=== PATIENT | female | born 1975 | race Caucasian/White ===

== ENCOUNTER 2019-11-14 19:13 | Inpatient (IN) | payer OTHER, MEDICAID ==
[~2019-11-14] VITALS: Ht 154.9 cm; Wt 69.5 kg
[2019-11-14] MEDS ORDERED: HYD25 PO (20:37)
[2019-11-14] MEDS ORDERED: VALP250S23 PO (20:37)
[2019-11-14] MEDS ORDERED: PALI6 PO (20:37)
[2019-11-14] MEDS ORDERED: BUPR75 PO (20:37)
[2019-11-14 22:27] LABS: BASOPHILS % (AUTO) 0.7 % (0.0-2.0); EOSINOPHILS % (AUTO) 1.2 % (1.0-6.0); HEMATOCRIT 40.9 % (36-46); HEMOGLOBIN 13.8 g/dL (12.0-16.0); LYMPHOCYTES % (AUTO) 24.9 % (22.0-44.0); MEAN CORPUSCULAR HEMOGLOBIN 30.5 pg (26.0-34.0); MEAN CORPUSCULAR HGB CONC 33.6 G/dL (31.0-37.0); MEAN CORPUSCULAR VOLUME 91 fL (80-100); MONOCYTES # (AUTO) 0.7 K/uL (0.1-1.0); MONOCYTES % (AUTO) 9.2 % (2.0-9.0); NEUTROPHILS # (AUTO) 5.1 K/uL (1.8-7.7); PLATELET COUNT (AUTO) 155 K/uL (150-450); RED BLOOD CELL COUNT(AUTO) 4.51 MIL/uL (4.00-5.20); RED CELL DISTRIBUTION WIDTH 13.7 % (11.5-14.5)
[2019-11-14 22:35] LABS: ANION GAP 6 mmol/L (8-16); CALCIUM, TOTAL 9.2 mg/dL (8.8-10.5); CARBON DIOXIDE 29 mmol/L (22-29); CHLORIDE 101 mmol/L (98-107); CREATININE 0.72 mg/dL (0.60-1.30); GLOMERULAR FILTR. RATE CALC > 60 mL/min (>60); GLUCOSE,RANDOM 79 mg/dL (70-110); POTASSIUM 3.7 mmol/L (3.5-5.1); SODIUM SERUM 136 mmol/L (136-145); UREA NITROGEN, BLOOD 10 mg/dL (7-18)
[2019-11-14 22:42] LABS: ALANINE AMINOTRANSFERASE 19 U/L (12-78); ALBUMIN 3.7 g/dL (3.4-5.0); ALKALINE PHOSPHATASE 100 U/L (46-116); ASPARTATE AMINOTRANSFERASE 18 U/L (15-37); BILIRUBIN,TOTAL 0.3 mg/dL (0.1-1.0); TOTAL PROTEIN, SERUM 7.6 g/dL (6.4-8.2)
[2019-11-14] MEDS ORDERED: HALOPERIDOL 5 MG TABLET PO PRN (23:00)
[2019-11-15 02:01] VITALS: BP 126/80
[2019-11-15 08:41] LABS: CHOL/HDL RATIO 2.7 (3.9-5.7)
[2019-11-15] MEDS ORDERED: ALBUTEROL SULFATE HFA 90 MCG/PUFF 8 GM INHALER IH PRN (09:00)
[2019-11-15] MEDS ORDERED: OMEPRAZOLE 20 MG CAPSULE PO PRN (09:00)
[2019-11-15] MEDS ORDERED: PETROLATUM,WHITE 28 GM JELLY TP PRN (09:00)
[2019-11-15] MEDS ORDERED: BACITRACIN 28.4 GM OINTMENT TP PRN (09:00)
[2019-11-15] MEDS ORDERED: MAGNESIUM HYDROXIDE SUSPENSION 30 ML UDCUP PO PRN (09:00)
[2019-11-15] MEDS ORDERED: BENZOCAINE/MENTHOL LOZENGE MM PRN (09:00)
[2019-11-15] MEDS ORDERED: DOCUSATE SODIUM 100 MG CAPSULE PO PRN (09:00)
[2019-11-15] MEDS ORDERED: CloNIDine HCL 0.1 MG TABLET PO PRN (09:00)
[2019-11-15] MEDS ORDERED: MAG HYDROX/AL HYDROX/SIMETH ES 30 ML SUSPENSION UDCUP PO PRN (09:00)
[2019-11-15] MEDS ORDERED: ONDANSETRON HCL 4 MG TABLET PO PRN (09:00)
[2019-11-15] MEDS ORDERED: LOPERAMIDE HCL 2 MG CAPSULE PO PRN (09:00)
[2019-11-15 10:05] VITALS: BP 127/80
[2019-11-15] MEDS: BuPROPion HCL 75 MG TABLET PO SCH ×2 (12:41→17:24)
[2019-11-15] MEDS: VALPROIC ACID 250 MG/5 ML SYRUP UDCUP PO SCH ×2 (12:45→17:24)
[2019-11-15] MEDS: HydrOXYzine HCL 25 MG TABLET PO SCH (17:24)
[2019-11-15 17:40] VITALS: BP 110/70
[2019-11-16] MEDS: HydrOXYzine HCL 25 MG TABLET PO SCH ×2 (08:27→16:10)
[2019-11-16] MEDS: VALPROIC ACID 250 MG/5 ML SYRUP UDCUP PO SCH ×3 (08:27→16:11)
[2019-11-16] MEDS: PALIPERIDONE 6 MG ER TABLET PO SCH (08:27)
[2019-11-16 09:11] VITALS: BP 118/75
[2019-11-16] MEDS: BuPROPion HCL 150 MG SR TABLET PO SCH ×3 (09:22→16:10)
[2019-11-16 17:18] VITALS: BP 119/68
[2019-11-17 04:00] VITALS: BP 124/80
[2019-11-17] MEDS: VALPROIC ACID 250 MG/5 ML SYRUP UDCUP PO SCH ×3 (08:16→17:18)
[2019-11-17] MEDS: BuPROPion HCL 150 MG SR TABLET PO SCH ×3 (08:17→17:18)
[2019-11-17] MEDS: PALIPERIDONE 6 MG ER TABLET PO SCH (08:17)
[2019-11-17] MEDS: HydrOXYzine HCL 25 MG TABLET PO SCH ×2 (08:17→17:18)
[2019-11-17 08:55] VITALS: BP 112/85
[2019-11-17 16:32] VITALS: BP 115/75
[2019-11-18] MEDS: BuPROPion HCL 150 MG SR TABLET PO SCH ×3 (08:49→16:10)
[2019-11-18] MEDS: VALPROIC ACID 250 MG/5 ML SYRUP UDCUP PO SCH ×3 (08:49→16:12)
[2019-11-18] MEDS: HydrOXYzine HCL 25 MG TABLET PO SCH ×2 (08:49→16:12)
[2019-11-18] MEDS: PALIPERIDONE 6 MG ER TABLET PO SCH (08:49)
[2019-11-18 08:54] VITALS: BP 109/67
[2019-11-18 17:00] VITALS: BP 106/66
[2019-11-19] MEDS: HydrOXYzine HCL 25 MG TABLET PO SCH ×2 (08:24→16:06)
[2019-11-19] MEDS: VALPROIC ACID 250 MG/5 ML SYRUP UDCUP PO SCH ×3 (08:24→16:06)
[2019-11-19] MEDS: PALIPERIDONE 6 MG ER TABLET PO SCH (08:25)
[2019-11-19] MEDS: BuPROPion HCL 150 MG SR TABLET PO SCH ×3 (08:25→16:06)
[2019-11-19 09:25] VITALS: BP 111/64
[2019-11-19 21:08] VITALS: BP 116/70
[2019-11-20 02:10] VITALS: BP 127/68
[2019-11-20] MEDS: BuPROPion HCL 150 MG SR TABLET PO SCH ×3 (08:19→16:18)
[2019-11-20] MEDS: HydrOXYzine HCL 25 MG TABLET PO SCH ×2 (08:19→16:18)
[2019-11-20] MEDS: VALPROIC ACID 250 MG/5 ML SYRUP UDCUP PO SCH ×3 (08:19→16:18)
[2019-11-20] MEDS: PALIPERIDONE 6 MG ER TABLET PO SCH (08:19)
[2019-11-20 09:00] VITALS: BP 107/67
[2019-11-20 22:06] VITALS: BP 106/77
[2019-11-21] MEDS: HydrOXYzine HCL 25 MG TABLET PO SCH ×2 (09:00→17:22)
[2019-11-21] MEDS: PALIPERIDONE 6 MG ER TABLET PO SCH (09:00)
[2019-11-21] MEDS: BuPROPion HCL 150 MG SR TABLET PO SCH ×3 (09:00→17:22)
[2019-11-21] MEDS: VALPROIC ACID 250 MG/5 ML SYRUP UDCUP PO SCH ×3 (09:00→16:13)
[2019-11-21 11:57] VITALS: BP 108/65
[2019-11-21 17:09] VITALS: BP 101/50
[2019-11-22] MEDS: VALPROIC ACID 250 MG/5 ML SYRUP UDCUP PO SCH ×3 (08:48→16:00)
[2019-11-22] MEDS: HydrOXYzine HCL 25 MG TABLET PO SCH ×2 (08:48→16:00)
[2019-11-22] MEDS: BuPROPion HCL 150 MG SR TABLET PO SCH ×3 (08:49→16:00)
[2019-11-22] MEDS: PALIPERIDONE 6 MG ER TABLET PO SCH (08:49)
[2019-11-22 09:10] VITALS: BP 100/64
[2019-11-22] MEDS ORDERED: PALIPERIDONE PALMITATE 156 MG/ML SYRINGE IM SCH (16:00)
[2019-11-22 17:27] VITALS: BP 104/68
[2019-11-22] MEDS: IBUPROFEN 600 MG TABLET PO PRN (22:54)
[2019-11-23 03:45] VITALS: BP 119/76
[2019-11-23 08:30] VITALS: BP 113/74
[2019-11-23] MEDS: VALPROIC ACID 250 MG/5 ML SYRUP UDCUP PO SCH ×3 (08:31→16:51)
[2019-11-23] MEDS: HydrOXYzine HCL 25 MG TABLET PO SCH ×2 (08:31→16:50)
[2019-11-23] MEDS: BuPROPion HCL 150 MG SR TABLET PO SCH ×3 (08:31→16:51)
[2019-11-23] MEDS: PALIPERIDONE 6 MG ER TABLET PO SCH (08:31)
[2019-11-23 16:47] VITALS: BP 112/65
[2019-11-24 00:28] VITALS: BP 121/80
[2019-11-24] MEDS: ZOLPIDEM TARTRATE 10 MG TABLET PO PRN (00:32)
[2019-11-24] MEDS: ACETAMINOPHEN 325 MG TABLET PO PRN ×2 (00:33→20:10)
[2019-11-24] MEDS: HydrOXYzine HCL 25 MG TABLET PO SCH ×2 (09:41→16:19)
[2019-11-24] MEDS: VALPROIC ACID 250 MG/5 ML SYRUP UDCUP PO SCH ×3 (09:41→16:20)
[2019-11-24] MEDS: BuPROPion HCL 150 MG SR TABLET PO SCH ×3 (09:41→16:19)
[2019-11-24 10:56] VITALS: BP 108/75
[2019-11-24 16:49] VITALS: BP 123/74
[2019-11-25 03:05] VITALS: BP 114/72
[2019-11-25] MEDS: LORazepam 2 MG TABLET PO PRN (03:10)
[2019-11-25] MEDS: HydrOXYzine HCL 25 MG TABLET PO SCH ×2 (08:54→16:32)
[2019-11-25] MEDS: VALPROIC ACID 250 MG/5 ML SYRUP UDCUP PO SCH ×3 (08:54→16:32)
[2019-11-25] MEDS: BuPROPion HCL 150 MG SR TABLET PO SCH ×3 (08:54→16:32)
[2019-11-25 10:34] VITALS: BP 100/50
[2019-11-25 17:04] VITALS: BP 111/77
[2019-11-26 09:52] VITALS: BP 112/77
[2019-11-26] MEDS: HydrOXYzine HCL 25 MG TABLET PO SCH ×2 (09:54→17:03)
[2019-11-26] MEDS: VALPROIC ACID 250 MG/5 ML SYRUP UDCUP PO SCH ×3 (09:54→17:03)
[2019-11-26] MEDS: BuPROPion HCL 150 MG SR TABLET PO SCH ×3 (09:54→17:03)
[2019-11-26 19:20] VITALS: BP 128/71
[2019-11-27 08:37] VITALS: BP 101/64
[2019-11-27] MEDS: BuPROPion HCL 150 MG SR TABLET PO SCH ×3 (09:01→16:18)
[2019-11-27] MEDS: HydrOXYzine HCL 25 MG TABLET PO SCH ×2 (09:01→16:18)
[2019-11-27] MEDS: VALPROIC ACID 250 MG/5 ML SYRUP UDCUP PO SCH ×3 (09:01→16:18)
[2019-11-27 17:00] VITALS: BP 109/73
[2019-11-27 20:11] VITALS: BP 125/78
[2019-11-27] MEDS: IBUPROFEN 600 MG TABLET PO PRN (20:13)
[2019-11-28 03:09] VITALS: BP 103/74
[2019-11-28] MEDS: BuPROPion HCL 150 MG SR TABLET PO SCH ×3 (08:13→16:22)
[2019-11-28] MEDS: HydrOXYzine HCL 25 MG TABLET PO SCH ×2 (08:13→16:22)
[2019-11-28] MEDS: VALPROIC ACID 250 MG/5 ML SYRUP UDCUP PO SCH ×3 (08:14→16:22)
[2019-11-28 08:51] VITALS: BP 122/80
[2019-11-28 18:45] VITALS: BP 107/69
[2019-11-28] MEDS: ACETAMINOPHEN 325 MG TABLET PO PRN (19:23)
[2019-11-29] MEDS: ACETAMINOPHEN 325 MG TABLET PO PRN (02:05)
[2019-11-29 02:07] VITALS: BP 101/70
[2019-11-29] MEDS: LORazepam 2 MG TABLET PO PRN (04:51)
[2019-11-29] MEDS: BuPROPion HCL 150 MG SR TABLET PO SCH ×3 (08:19→16:19)
[2019-11-29] MEDS: VALPROIC ACID 250 MG/5 ML SYRUP UDCUP PO SCH ×3 (08:20→16:19)
[2019-11-29] MEDS: HydrOXYzine HCL 25 MG TABLET PO SCH ×2 (08:20→16:19)
[2019-11-29 08:50] VITALS: BP 120/84
[2019-11-29 19:34] VITALS: BP 111/74
[2019-11-29] MEDS: ZOLPIDEM TARTRATE 10 MG TABLET PO PRN (22:28)
[2019-11-30 00:50] VITALS: BP 111/74
[2019-11-30] MEDS: HydrOXYzine HCL 25 MG TABLET PO SCH ×2 (08:01→16:17)
[2019-11-30] MEDS: BuPROPion HCL 150 MG SR TABLET PO SCH ×3 (08:01→16:17)
[2019-11-30] MEDS: VALPROIC ACID 250 MG/5 ML SYRUP UDCUP PO SCH ×3 (08:01→16:17)
[2019-11-30 08:43] VITALS: BP 118/78
[2019-11-30 17:10] VITALS: BP 110/67
[2019-11-30] MEDS: IBUPROFEN 600 MG TABLET PO PRN (22:31)
[2019-11-30 22:35] VITALS: BP 111/70
[2019-12-01 06:19] VITALS: BP 102/71
[2019-12-01] MEDS: HydrOXYzine HCL 25 MG TABLET PO SCH ×2 (08:25→16:38)
[2019-12-01] MEDS: BuPROPion HCL 150 MG SR TABLET PO SCH ×3 (08:25→16:38)
[2019-12-01] MEDS: VALPROIC ACID 250 MG/5 ML SYRUP UDCUP PO SCH ×3 (08:26→16:38)
[2019-12-01 08:46] VITALS: BP 167/61
[2019-12-01 17:14] VITALS: BP 110/69
[2019-12-02 03:16] VITALS: BP 95/62
[2019-12-02] MEDS: HydrOXYzine HCL 25 MG TABLET PO SCH ×2 (09:02→16:13)
[2019-12-02] MEDS: VALPROIC ACID 250 MG/5 ML SYRUP UDCUP PO SCH ×3 (09:02→16:14)
[2019-12-02] MEDS: BuPROPion HCL 150 MG SR TABLET PO SCH ×3 (09:02→16:13)
[2019-12-02 11:25] VITALS: BP 100/65
[2019-12-02 18:25] VITALS: BP 109/72
[2019-12-03 01:40] VITALS: BP 113/66
[2019-12-03] MEDS: HydrOXYzine HCL 25 MG TABLET PO SCH (08:40)
[2019-12-03] MEDS: BuPROPion HCL 150 MG SR TABLET PO SCH ×2 (08:40→12:28)
[2019-12-03] MEDS: VALPROIC ACID 250 MG/5 ML SYRUP UDCUP PO SCH ×2 (08:40→12:28)
[2019-12-03 09:08] VITALS: BP 109/70
[2019-12-03] MEDS ORDERED: PALI156D IM (12:41)
[2019-12-03] MEDS ORDERED: BUPR150SR PO (12:53)
== END 2019-12-03 16:50 | disposition home or self-care (01) | DRG 885 ==
LOC: EMS 19:14 → 3EI 23:10
PROVIDERS: ADMIT Psychiatry & Neurology Psychiatry; ATTEND Psychiatry & Neurology Psychiatry
DX: F25.9 Schizoaffective disorder, unspecified (principal); E78.00 Pure hypercholesterolemia, unspecified; F17.210 Nicotine dependence, cigarettes, uncomplicated; F41.9 Anxiety disorder, unspecified; F51.4 Sleep terrors [night terrors]; G47.00 Insomnia, unspecified; K59.00 Constipation, unspecified; Z79.899 Other long term (current) drug therapy; Z98.1 Arthrodesis status; Z88.5 Allergy status to narcotic agent; Z88.8 Allergy status to other drugs, medicaments and biological substances; Z71.6 Tobacco abuse counseling
CPT/HCPCS: G0480

== ENCOUNTER 2021-05-05 00:52 | Emergency (ER) | payer OTHER ==
[~2021-05-05] VITALS: Ht 154.9 cm; Wt 66.4 kg
[~2021-05-05 00:52] MED LIST: BUPR150SR PO; HYD25 PO; PALI156D IM; VALP250S23 PO
[2021-05-05] MEDS ORDERED: ALBU8HFA IH (01:12)
[2021-05-05] MEDS ORDERED: HYDR-4031 PO (01:12)
[2021-05-05 03:30] VITALS: BP 129/71
[2021-05-05] MEDS ORDERED: ALBUTEROL SULFATE HFA 90 MCG/PUFF 8 GM INHALER IH ONE (03:30)
[2021-05-05] MEDS ORDERED: PredniSONE 20 MG TABLET PO ONE (03:30)
== END 2021-05-05 04:29 | disposition home or self-care (01) ==
LOC: EMS 00:52
DX: J44.9 Chronic obstructive pulmonary disease, unspecified (principal); F20.9 Schizophrenia, unspecified; F41.9 Anxiety disorder, unspecified; Z88.5 Allergy status to narcotic agent; Z88.8 Allergy status to other drugs, medicaments and biological substances; Z79.899 Other long term (current) drug therapy
CPT/HCPCS: 94640; 99283; J7512; J3535

== ENCOUNTER 2022-03-19 18:35 | Inpatient (IN) | payer OTHER, MEDICAID ==
[~2022-03-19] VITALS: Ht 154.9 cm; Wt 74.8 kg
[~2022-03-19 18:35] MED LIST changes: +ALBU8HFA IH; +BUPR-290 PO; -BUPR150SR PO; -HYD25 PO; +HYDR-4527 PO; +HYDR-4808 PO
[2022-03-19] MEDS ORDERED: HALOPERIDOL 5 MG TABLET PO PRN (19:00)
[2022-03-19] MEDS ORDERED: LORazepam 2 MG TABLET PO PRN (19:00)
[2022-03-19] MEDS ORDERED: PNEUMOCOCCAL VACCINE POLYVALENT 0.5 ML VIAL [PPSV23] IM. ONE (19:30)
[2022-03-19 20:00] VITALS: BP 126/78
[2022-03-19] MEDS: ZOLPIDEM TARTRATE 10 MG TABLET PO PRN (23:46)
[2022-03-20 04:28] VITALS: BP 108/71
[2022-03-20] MEDS ORDERED: ONDANSETRON HCL 4 MG TABLET PO PRN (06:45)
[2022-03-20] MEDS ORDERED: CloNIDine HCL 0.1 MG TABLET PO PRN (06:45)
[2022-03-20] MEDS ORDERED: ACETAMINOPHEN 325 MG TABLET PO PRN (06:45)
[2022-03-20] MEDS ORDERED: MAGNESIUM HYDROXIDE SUSPENSION 30 ML UDCUP PO PRN (06:45)
[2022-03-20] MEDS ORDERED: PETROLATUM,WHITE 28 GM JELLY TP PRN (06:45)
[2022-03-20] MEDS ORDERED: IBUPROFEN 400 MG TABLET PO PRN (06:45)
[2022-03-20] MEDS ORDERED: GuaiFENesin/D-METHORPHAN [SUGAR-FREE] 200-20MG/10 ML SYRUP UDCUP PO PRN (06:45)
[2022-03-20] MEDS ORDERED: LOPERAMIDE HCL 2 MG CAPSULE PO PRN (06:45)
[2022-03-20] MEDS ORDERED: NICOTINE 14 MG/24 HOUR PATCH TD PRN (06:45)
[2022-03-20] MEDS ORDERED: MAG HYDROX/AL HYDROX/SIMETH ES 30 ML SUSPENSION UDCUP PO PRN (06:45)
[2022-03-20] MEDS ORDERED: DOCUSATE SODIUM 100 MG CAPSULE PO PRN (06:45)
[2022-03-20 08:25] VITALS: BP 117/8
[2022-03-20] MEDS ORDERED: FLUO20CA36 PO (09:24)
[2022-03-20] MEDS ORDERED: ARIP10TA PO (09:24)
[2022-03-20] MEDS: ARIPiprazole 10 MG TABLET PO SCH (10:23)
[2022-03-20] MEDS: FLUoxetine HCL 20 MG CAPSULE PO SCH (10:23)
[2022-03-20 13:44] LABS: BASOPHILS % (AUTO) 0.7 % (0.0-2.0); EOSINOPHILS % (AUTO) 0.6 % (1.0-6.0); HEMATOCRIT 42.7 % (36-46); HEMOGLOBIN 14.1 g/dL (12.0-16.0); LYMPHOCYTES # (AUTO) 1.2 K/uL (1.0-4.8); LYMPHOCYTES % (AUTO) 18.2 % (22.0-44.0); MEAN CORPUSCULAR HEMOGLOBIN 29.5 pg (26.0-34.0); MEAN CORPUSCULAR VOLUME 90 fL (80-100); MONOCYTES # (AUTO) 0.4 K/uL (0.1-1.0); MONOCYTES % (AUTO) 6.9 % (2.0-9.0); NEUTROPHILS # (AUTO) 4.7 K/uL (1.8-7.7); NEUTROPHILS % (AUTO) 73.6 % (40.0-70.0); PLATELET COUNT (AUTO) 216 K/uL (150-450); RED BLOOD CELL COUNT(AUTO) 4.76 MIL/uL (4.00-5.20); RED CELL DISTRIBUTION WIDTH 13.1 % (11.5-14.5)
[2022-03-20 13:59] LABS: HEMOGLOBIN A1C 5.2 % (3.8-5.6)
[2022-03-20 14:05] LABS: ALANINE AMINOTRANSFERASE 25 U/L (12-78); ALBUMIN 3.9 g/dL (3.4-5.0); ALKALINE PHOSPHATASE 128 U/L (46-116); ANION GAP 7 mmol/L (8-16); ASPARTATE AMINOTRANSFERASE 18 U/L (15-37); BILIRUBIN,TOTAL 0.3 mg/dL (0.1-1.0); CALCIUM, TOTAL 9.5 mg/dL (8.8-10.5); CARBON DIOXIDE 30 mmol/L (22-29); CHLORIDE 106 mmol/L (98-107); CHOL/HDL RATIO 2.4 (3.9-5.7); CHOLESTEROL 147 mg/dL (131-200); CREATININE 0.87 mg/dL (0.60-1.30); FREE T4 (FREE THYROXINE) 1.09 ng/dL (0.76-1.46); GLOMERULAR FILTR. RATE CALC > 60 mL/min (>60); GLUCOSE,RANDOM 88 mg/dL (70-110); HDL CHOLESTEROL 62 mg/dL (40-60); LDL CHOL (CALC.) 76 mg/dL (0-130); POTASSIUM 4.1 mmol/L (3.5-5.1); SODIUM SERUM 143 mmol/L (136-145); THYROID STIMULATING HORMONE 1.04 uIU/mL (0.36-3.74); TOTAL PROTEIN, SERUM 7.9 g/dL (6.4-8.2); TRIGLYCERIDES 46 mg/dL (15-150); UREA NITROGEN, BLOOD 10 mg/dL (7-18)
[2022-03-20 16:31] VITALS: BP 123/77
[2022-03-20] MEDS: MELATONIN 3 MG TABLET PO SCH (21:07)
[2022-03-21] MEDS: FLUoxetine HCL 20 MG CAPSULE PO SCH (08:19)
[2022-03-21] MEDS: ARIPiprazole 10 MG TABLET PO SCH (08:19)
[2022-03-21 08:30] VITALS: BP 118/73
[2022-03-21] MEDS: MELATONIN 3 MG TABLET PO SCH (21:12)
[2022-03-21 21:32] VITALS: BP 109/70
[2022-03-22 08:29] VITALS: BP 115/73
[2022-03-22] MEDS: FLUoxetine HCL 20 MG CAPSULE PO SCH (10:08)
[2022-03-22] MEDS: ARIPiprazole 10 MG TABLET PO SCH (10:08)
[2022-03-22 20:07] VITALS: BP 104/73
[2022-03-22] MEDS: MELATONIN 3 MG TABLET PO SCH (20:47)
[2022-03-23 08:12] VITALS: BP 127/74
[2022-03-23] MEDS: ARIPiprazole 10 MG TABLET PO SCH (08:54)
[2022-03-23] MEDS: FLUoxetine HCL 20 MG CAPSULE PO SCH (08:54)
[2022-03-23 20:04] VITALS: BP 124/70
[2022-03-23] MEDS: MELATONIN 3 MG TABLET PO SCH (20:10)
[2022-03-24 04:21] VITALS: BP 108/67
[2022-03-24 08:01] VITALS: BP 127/67
[2022-03-24] MEDS: ARIPiprazole 10 MG TABLET PO SCH (09:00)
[2022-03-24] MEDS: FLUoxetine HCL 20 MG CAPSULE PO SCH (09:00)
[2022-03-24] MEDS: MELATONIN 3 MG TABLET PO SCH (20:03)
[2022-03-24 20:34] VITALS: BP 112/69
[2022-03-24] MEDS: ALBUTEROL SULFATE HFA 90 MCG/PUFF 8 GM INHALER IH PRN (22:01)
[2022-03-25 01:02] VITALS: BP 130/82
[2022-03-25] MEDS: ZOLPIDEM TARTRATE 10 MG TABLET PO PRN (01:06)
[2022-03-25 08:06] VITALS: BP 122/76
[2022-03-25] MEDS: ARIPiprazole 10 MG TABLET PO SCH (08:21)
[2022-03-25] MEDS: FLUoxetine HCL 20 MG CAPSULE PO SCH (08:21)
[2022-03-25] MEDS: ALBUTEROL SULFATE HFA 90 MCG/PUFF 8 GM INHALER IH PRN (19:59)
[2022-03-25] MEDS: MELATONIN 3 MG TABLET PO SCH (20:06)
[2022-03-25 20:07] VITALS: BP 113/66
[2022-03-26 08:21] VITALS: BP 113/66
[2022-03-26] MEDS: ARIPiprazole 10 MG TABLET PO SCH (08:47)
[2022-03-26] MEDS: FLUoxetine HCL 20 MG CAPSULE PO SCH (08:47)
[2022-03-26 14:20] LABS: GLUCOMETER DEV NAME(LOC) POC.BV
[2022-03-26] MEDS ORDERED: FLUO20CA36 PO (14:36)
[2022-03-26] MEDS ORDERED: ARIP10TA38 PO (14:36)
== END 2022-03-26 15:45 | disposition home or self-care (01) | DRG 885 ==
LOC: B2X 18:50
PROVIDERS: ADMIT Psychiatry & Neurology Psychiatry; ATTEND Psychiatry & Neurology Psychiatry
DX: F25.1 Schizoaffective disorder, depressive type (principal); R45.851 Suicidal ideations; F41.9 Anxiety disorder, unspecified; F64.9 Gender identity disorder, unspecified; G47.00 Insomnia, unspecified; J44.9 Chronic obstructive pulmonary disease, unspecified; Z20.822 Contact with and (suspected) exposure to COVID-19; K21.9 Gastro-esophageal reflux disease without esophagitis; Z79.899 Other long term (current) drug therapy; Z91.51 Personal history of suicidal behavior; Z88.5 Allergy status to narcotic agent; Z88.8 Allergy status to other drugs, medicaments and biological substances
CPT/HCPCS: 80053; 80061; 83036; 84439; 84443; 85025; 87081; 90732; J3535